=== PATIENT | male | born 1990 | race African-American/Black ===

== ENCOUNTER 2018-10-11 15:48 | Inpatient (IN) ==
[2018-10-11] MEDS ORDERED: DIPH/TET/ACEL PERT BOOSTER VACCINE 0.5 ML VIAL IM ONE (15:54)
[2018-10-11 16:13] LABS: Basophils # 0.1 10*3/uL (0.0-0.2); Basophils % 1.1 % (0.0-0.8); Eosinophils # 0.3 10*3/uL (0.0-0.87); Eosinophils % 3.1 % (0.00-10.9); Hematocrit 42.6 VOL% (42.0-52.0); Immature Granulocytes % 0.4 %; Immature Granulocytes Absolute 0.04 #; Lymphocytes # 4.6 10*3/uL (1.4-4.0); Lymphocytes % 44.2 % (21.2-54.2); Mean Corpuscular HGB Conc 32.9 GM/DL (32-36); Mean Corpuscular Volume 91.6 FL (87-102); Mean Platelet Volume 10.3 FL (9.6-12.0); Monocytes % 8.3 % (1.7-12.7); Neutrophils % 42.9 % (38.7-73.9); Platelet Count 229 T/CUMM (130-400); Red Blood Count 4.65 MC/CUMM (3.8-5.5); Red Cell Distribution Width 12.3 % (9.3-17.3); White Blood Count 10.3 T/CUMM (4-12)
[2018-10-11] MEDS ORDERED: HYDROmorphone 2 MG/1 ML VIAL IV ONE (16:18)
[2018-10-11] MEDS ORDERED: ONDANSETRON 4 MG/2 ML VIAL IV STA (16:18)
[2018-10-11] MEDS ORDERED: KETOROLAC 10 MG TABLET PO PRN (16:19)
[2018-10-11] MEDS ORDERED: BISACODYL 5 MG TABLET PO PRN (16:19)
[2018-10-11] MEDS ORDERED: ACETAMINOPHEN 325 MG TABLET PO PRN (16:19)
[2018-10-11] MEDS ORDERED: ONDANSETRON 4 MG/2 ML VIAL IV PRN (16:19)
[2018-10-11] MEDS ORDERED: ALBUTEROL/IPRATROPIUM 3 ML NEB RESP TX PRN (16:19)
[2018-10-11 16:22] LABS: INR 0.9; PT Patient Result 10.1 SECS; Partial Thromboplastin Time < 21.0 SECS (0-40)
[2018-10-11 16:34] LABS: Alanine Aminotransferase 36 U/L (16-61); Albumin 3.9 G/DL (3.4-5.0); Alkaline Phosphatase 94 U/L (45-117); Amylase 55 U/L (25-115); Aspartate Amino Transferase 28 U/L (0-37); Blood Urea Nitrogen 10 MG/DL (7-18); Calcium 8.5 MG/DL (8.5-10.1); Glucose 118 MG/DL (74-106); Osmolality,Calculated 278.4 MOS/KG (273-304); Total Protein 7.1 G/DL (6.4-8.3)
[2018-10-11] MEDS: LACTATED RINGERS 1,000 ML IV SCH ×2 (16:42→23:45)
[2018-10-11] MEDS ORDERED: GENTAMICIN INJ 80 MG in PREMIX 1 EACH IV ONE (16:52)
[2018-10-11] MEDS ORDERED: BACITRACIN OINT 0.9 GM PACK TOP ONE (16:54)
[2018-10-11] MEDS ORDERED: diphenhydrAMINE CAP 25 MG CAPSULE PO PRN (17:33)
[2018-10-11] MEDS ORDERED: MAGNESIUM HYDROXIDE SUSP 30 ML UDCUP PO PRN (17:33)
[2018-10-11] MEDS ORDERED: SEVOFLURANE 1 UNIT/15 MINUTE INH ONE (20:07)
[2018-10-11] MEDS ORDERED: fentaNYL 100 MCG/2 ML VIAL ONE (20:07)
[2018-10-11] MEDS ORDERED: PROPOFOL 200 MG/20 ML VIAL IV ONE (20:07)
[2018-10-11] MEDS ORDERED: MIDAZOLAM 2 MG/2 ML VIAL ONE (20:07)
[2018-10-11] MEDS ORDERED: SUCCINYLCHOLINE 200 MG/10 ML VIAL ONE (20:08)
[2018-10-11] MEDS ORDERED: ONDANSETRON 4 MG/2 ML VIAL ONE (20:08)
[2018-10-11] MEDS ORDERED: NEOSTIGMINE 10 MG/10 ML VIAL ONE (20:08)
[2018-10-11] MEDS ORDERED: LACTATED RINGERS 1,000 ML IV ONE (20:08)
[2018-10-11] MEDS ORDERED: PHENYLEPHRINE 1 MG/10 ML SYRINGE IV ONE (20:08)
[2018-10-11] MEDS ORDERED: ROCURONIUM 100 MG/10 ML VIAL IV ONE (20:08)
[2018-10-11] MEDS ORDERED: GLYCOPYRROLATE 0.4 MG/2 ML VIAL ONE (20:08)
[2018-10-11] MEDS: HYDROmorphone 2 MG/1 ML VIAL IV PRN (21:27)
[2018-10-11] MEDS: DOCUSATE SODIUM 100 MG CAPSULE PO SCH (22:30)
[2018-10-11] MEDS: ceFAZolin 1,000 MG in SYRINGE 1 EACH IV SCH (23:44)
[2018-10-12 02:47] LABS: Apearance,Urine CLEAR (Clear); Bilirubin,Urine Negative (Negative); Blood, Urine Small mg/dL (Negative); Glucose,Urine (UA) Negative (Negative); Ketones,Urine 20 mg/dL (Negative); Nitrite,Urine Negative (Negative); Protein,Urine Negative; Urine Color Yellow (Yellow); Urine Urobilinogen < 2.0 EU/DL (0.2-1.0)
[2018-10-12 02:55] LABS: Barbiturates Screen,Urine Negative (Negative); Benzodiazepines Screen,Urine Positive (Negative); Cannabinoid Screen,Urine Positive (Negative); Opiate Screen,Urine Positive (Negative); Phencyclidine Screen,Urine Negative (Negative)
[2018-10-12 03:09] LABS: RBC,Urine Rare /HPF (0-4)
[2018-10-12] MEDS: HYDROmorphone 2 MG/1 ML VIAL IV PRN ×6 (04:27→23:07)
[2018-10-12 04:48] LABS: Basophils # 0.1 10*3/uL (0.0-0.2); Basophils % 0.5 % (0.0-0.8); Eosinophils % 0.1 % (0.00-10.9); Hematocrit 30.3 VOL% (42.0-52.0); Hemoglobin 10.1 GM/DL (14.0-18.0); Immature Granulocytes % 0.4 %; Immature Granulocytes Absolute 0.04 #; Lymphocytes # 1.6 10*3/uL (1.4-4.0); Lymphocytes % 14.9 % (21.2-54.2); Mean Corpuscular HGB Conc 33.3 GM/DL (32-36); Mean Corpuscular Volume 91.5 FL (87-102); Mean Platelet Volume 10.7 FL (9.6-12.0); Neutrophils % 75.1 % (38.7-73.9); Platelet Count 176 T/CUMM (130-400); Red Blood Count 3.31 MC/CUMM (3.8-5.5); Red Cell Distribution Width 12.2 % (9.3-17.3); White Blood Count 10.9 T/CUMM (4-12)
[2018-10-12 05:04] LABS: Calcium 8.2 MG/DL (8.5-10.1); Osmolality,Calculated 272.7 MOS/KG (273-304)
[2018-10-12] MEDS: LACTATED RINGERS 1,000 ML IV SCH ×2 (06:47)
[2018-10-12] MEDS: DOCUSATE SODIUM 100 MG CAPSULE PO SCH ×2 (08:22→20:02)
[2018-10-12] MEDS: PANTOPRAZOLE 40 MG TABLET PO SCH (08:22)
[2018-10-12] MEDS: ceFAZolin 1,000 MG in SYRINGE 1 EACH IV SCH ×3 (08:25→23:07)
[2018-10-12] MEDS: FONDAPARINUX 2.5 MG/0.5 ML SYRINGE SUBCUT SCH (08:32)
[2018-10-13] MEDS: HYDROmorphone 2 MG/1 ML VIAL IV PRN ×3 (02:53→09:03)
[2018-10-13 05:34] LABS: Basophils # 0.1 10*3/uL (0.0-0.2); Basophils % 0.6 % (0.0-0.8); Eosinophils # 0.1 10*3/uL (0.0-0.87); Eosinophils % 0.8 % (0.00-10.9); Hematocrit 25.1 VOL% (42.0-52.0); Hemoglobin 8.7 GM/DL (14.0-18.0); Immature Granulocytes % 0.3 %; Immature Granulocytes Absolute 0.03 #; Lymphocytes # 3.1 10*3/uL (1.4-4.0); Lymphocytes % 28.6 % (21.2-54.2); Mean Corpuscular HGB Conc 34.7 GM/DL (32-36); Mean Platelet Volume 11.2 FL (9.6-12.0); Monocytes % 11.9 % (1.7-12.7); Neutrophils % 57.8 % (38.7-73.9); Platelet Count 160 T/CUMM (130-400); Red Blood Count 2.79 MC/CUMM (3.8-5.5); White Blood Count 10.7 T/CUMM (4-12)
[2018-10-13] MEDS: DOCUSATE SODIUM 100 MG CAPSULE PO SCH (08:52)
[2018-10-13] MEDS: PANTOPRAZOLE 40 MG TABLET PO SCH (08:52)
[2018-10-13] MEDS: FONDAPARINUX 2.5 MG/0.5 ML SYRINGE SUBCUT SCH (08:53)
[2018-10-13] MEDS: ceFAZolin 1,000 MG in SYRINGE 1 EACH IV SCH (08:54)
[2018-10-13 13:09] VITALS: BP 137/75
== END 2018-10-13 13:20 | disposition home health service (06) | DRG 482 ==
LOC: EDSEX → N.ED 15:48 → N.EDINP 16:19 → SUATTDRO 16:19 → N.3E 17:14
PROVIDERS: ADMIT Surgery; ATTEND Orthopaedic Surgery